=== PATIENT | male | born 1965 | race Caucasian/White ===

== ENCOUNTER 2018-12-11 22:35 | Inpatient (IN) ==
--- NOTE | 2018-12-11 22:50 | CT ---
CT head without contrast Indication: Left-sided weakness, hypertension Comparison: None Technique: CT images of the head were obtained without contrast. Automatic exposure control was utilized. Findings: Chronic bilateral basal ganglia infarcts. There is no acute bleed, mass effect, or abnormal extra-axial collection. No acute osseous abnormality. The paranasal sinuses and mastoid air cells are clear. Impression: No acute intracranial abnormality. Chronic basal ganglia infarcts. Reported By:
[2018-12-11 22:56] VITALS: BMI 29.8
[2018-12-11] MEDS ORDERED: NORMODYNE INJ 100 MG VIAL IVP ONE ×2 (22:56→23:11)
[2018-12-11 22:58] LABS: BASOPHILS # (AUTO) 0.1 X10^3/uL (0.0-0.1); BASOPHILS % (AUTO) 0.7 % (0.2-1.0); EOSINOPHILS # (AUTO) 0.1 x10^3/uL (0.0-0.2); HEMATOCRIT 46.8 % (42.0-54.0); HEMOGLOBIN 16.4 g/dL (13.5-18.0); MEAN CORPUSCULAR HEMOGLOBIN 33.5 pg (27.0-34.0); MEAN CORPUSCULAR VOLUME 95.7 fL (80.0-100.0); MEAN PLATELET VOLUME 7.4 fL (7.4-11.0); MONOCYTES # (AUTO) 0.6 x10^3/uL (0.3-0.8); MONOCYTES % (AUTO) 8.3 % (0.0-13.0); NEUTROPHILS # (AUTO) 3.8 x10^3/uL (2.2-4.8); PLATELET COUNT 253 X10^3/uL (150.0-450.0); RED BLOOD COUNT 4.89 X10^6/uL (4.7-6.0); RED CELL DISTRIBUTION WIDTH 13.8 % (11.6-16.5); WHITE BLOOD COUNT 7.5 X10^3/uL (3.6-10.0)
[2018-12-11 23:18] LABS: BLOOD UREA NITROGEN 8 mg/dL (7-18); CALCIUM 8.9 mg/dL (8.5-10.1); CARBON DIOXIDE 23.7 mmol/L (21-32); CHLORIDE 101 mmol/L (98-107); COR NA(FOR HYPERGLY) 139 mmol/L (136-145); CREATININE 1.08 mg/dL (0.70-1.30); SODIUM 138 mmol/L (136-145); TROPONIN I 0.03 ng/mL (0-1.5); eGFR NON BLACK RACES > 60 (>60)
[2018-12-11 23:21] LABS: ALANINE AMINOTRANSFERASE 36 Units/L (12-78); ALBUMIN 3.8 g/dL (3.4-5.0); ALKALINE PHOSPHATASE 116 Units/L (46-116); ASPARTATE AMINO TRANSFERASE 21 Units/L (15-37); CHOL/HDL RATIO 5.4 (0.0-5.0); CHOLESTEROL 179 mg/dL (0-200); CKMB % 1.5 % (<4); CREATINE KINASE 246 Units/L (39-308); CREATINE KINASE MB 3.6 ng/mL (0-4.0); HDL CHOLESTEROL 33 mg/dL (40-60); TOTAL PROTEIN 7.5 g/dL (6.4-8.2); TRIGLYCERIDES 444 mg/dL (0-150)
--- NOTE | 2018-12-11 23:35 | DR.WEAKNES ---
HPI Time Seen Time Seen by Provider: 12/11/18 23:30 Primary Care Physician Primary Care Physician: NFD Complaints Chief Complaint Doctors Comments: A 53 y/o male cherri was brought in by EMS with possible stroke. At the time the EMS unit arrived to evaluate him he was asymptomatic and he was asymptomatic upon arrival into the ED here. He states that his LUE was not acting right. He denies headaches, diplopia, dysphagia, visual impairment, urine or bladder impairment. Chief Complaint:: [facility] RESPONDED TO A CALL IN [place] REFERENCE TO POSSIBLE STROKE. [facility]IV[facility] PATIENT WITH NO DEFICITS. 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 PATIENT DOES SMELL OF ALCOHOL. EMS STATES, "/FRIEND STATED," S/S STARTED 1 HR AGO." PATIENT STATES, "HE FELT SOMETHING DIFFERENT AFTER LIFTING SOMETHING AT 1600. FEELS LIKE EVERYTHING IS GOING TO THE LEFT. Reviewed Nurses Notes Reviewed: Yes Source History Provided: Patient and EMS Mode of Arrival Mode of Arrival: EMS Timing Onset of Chief Complaint: 12/11/18 Since onset, symptoms are:: Resolved Symptom Onset: Known Onset of Symptoms Start Date: 12/11/18 Onset of Symptoms Start Time: 21:38 Context Onset: Spontaneous History of: None Stroke Symptoms: None Associated Signs and Symptoms Associated Signs and Symptoms: None PMH PMH Past Medical History: Yes Past Medical History: Hypertension Past Surgical History: No Family History History of Family Medical Conditions: No Social History Does patient currently use any type of tobacco product: No Have you used tobacco products in the last 12 months: No Type of Tobacco Use: None Does any household member use tobacco: No Alcohol Use: Heavy Do you use any recreational Drugs:: No Lives With: Spouse Lives Where: Home infectious screening Have you traveled outside the country in the last 6 months?: No Isolation: Standard ROS Review of Systems Constitutional: No Symptoms Reported Eyes: No Symptoms Reported ENTM: No Symptoms Reported Respiratoy: No Symptoms Reported Cardiovascular: No Symptoms Reported Gastrointestinal/Abdominal: No Symptoms Reported Genitourinary: No Symptoms Reported Musculoskeletal: Other (Lt. hand not acting right) Integumentary: No Symptoms Reported Hematologic/Lymphatic: No Symptoms Reported Endocrine: No Symptoms Reported Psychiatric: No Symptoms Reported PE Vital Signs Vitals: Temperature 98.9 F Pulse Rate [Apical] 73 Pulse Rate 102 Respiratory Rate 16 Blood Pressure [Left Arm] 147/82 Blood Pressure 240/125 O2 Sat by Pulse Oximetry 95 General Limitations: No Limitations General Appearance: Alert, In No Apparent Distress and Appears Intoxicated Head Head Exam: Normal Inspection, Atraumatic and Normocephalic Eyes Eye exam: Normal Appearance and EOMI ENT ENT Exam: Normal Oropharynx and Mucous Membranes Moist Mouth Exam: Normal Inspection Neck Neck Exam: Normal Inspection, Full ROM and Trachea Midline Chest Chest Inspection: Normal Inspection and Symmetric Chest Wall Rise Respiratory Respiratory Exam: Normal Lung Sounds Bilat Cardiovascular Cardiovascular Exam: Regular Rate, Normal Rhythm, +S1 and +S2 Abdominal Exam Abdominal Exam: Normal Inspection, Normal Bowel Sounds and Soft Extremities Extremities Exam: Normal Inspection and Full ROM Back Back Exam: Normal Inspection Neurologic Neurological Exam: Alert and Oriented X3 Psychiatric Psychiatric Exam: Normal Affect and Normal Mood Skin Skin Exam: Warm, Dry and Normal Color COURSE Reevaluation 1st: Resolved Education/Counseling Education/Counseling: Patient, Family, Education and Counseling Educated On: Treatment, Diagnosis, Prognosis and Needs for Follow Up ROR Labs Reviewed Laboratory Results Reviewed?: Yes Result Diagrams: 12/11/18 22:50 12/11/18 22:50 Laboratory: WBC 7.5 X10^3/uL (3.6-10.0) 12/11/18 22:50 RBC 4.89 X10^6/uL (4.7-6.0) 12/11/18 22:50 Hgb 16.4 g/dL (13.5-18.0) 12/11/18 22:50 Hct 46.8 % (42.0-54.0) 12/11/18 22:50 MCV 95.7 fL (80.0-100.0) 12/11/18 22:50 MCH 33.5 pg (27.0-34.0) 12/11/18 22:50 MCHC 35.0 g/dL (33.0-35.0) 12/11/18 22:50 RDW 13.8 % (11.6-16.5) 12/11/18 22:50 Plt Count 253 X10^3/uL (150.0-450.0) 12/11/18 22:50 MPV 7.4 fL (7.4-11.0) 12/11/18 22:50 Neut % (Auto) 50.0 % (42.0-75.0) 12/11/18 22:50 Lymph % (Auto) 40.0 % (21.0-51.0) 12/11/18 22:50 [place] % (Auto) 8.3 % (0.0-13.0) 12/11/18 22:50 Eos % (Auto) 1.0 % (0.9-2.9) 12/11/18 22:50 Baso % (Auto) 0.7 % (0.2-1.0) 12/11/18 22:50 Neut # (Auto) 3.8 x10^3/uL (2.2-4.8) 12/11/18 22:50 Lymph # (Auto) 3.0 X10^3/uL (1.3-2.9) H 12/11/18 22:50 [place] # (Auto) 0.6 x10^3/uL (0.3-0.8) 12/11/18 22:50 Eos # (Auto) 0.1 x10^3/uL (0.0-0.2) 12/11/18 22:50 Baso # (Auto) 0.1 X10^3/uL (0.0-0.1) 12/11/18 22:50 Absolute Nucleated RBC 0.1 /100WBC 12/11/18 22:50 INR Target Range - 12/11/18 22:50 INR 0.98 (0.8-1.3) 12/11/18 22:50 APTT 28.9 SECONDS (22.9-36.5) 12/11/18 22:50 PTT Comment - 12/11/18 22:50 Fibrinogen 342 mg/dL (239-489) 12/11/18 22:50 Sodium 138 mmol/L (136-145) 12/11/18 22:50 Corrected Sodium 139 mmol/L (136-145) 12/11/18 22:50 Potassium 3.4 mmol/L (3.5-5.1) L 12/11/18 22:50 Chloride 101 mmol/L (98-107) 12/11/18 22:50 Carbon Dioxide 23.7 mmol/L (21-32) 12/11/18 22:50 BUN 8 mg/dL (7-18) 12/11/18 22:50 Creatinine 1.08 mg/dL (0.70-1.30) 12/11/18 22:50 Est GFR (MDRD) Af Amer > 60 (>60) 12/11/18 22:50 Est GFR (MDRD) Non-Af > 60 (>60) 12/11/18 22:50 Glucose 144 mg/dL (65-99) H 12/11/18 22:50 Calcium 8.9 mg/dL (8.5-10.1) 12/11/18 22:50 Corrected Calcium TNP 12/11/18 22:50 Total Bilirubin 0.50 mg/dL (0.2-1.0) 12/11/18 22:50 AST 21 Units/L (15-37) 12/11/18 22:50 ALT 36 Units/L (12-78) 12/11/18 22:50 Alkaline Phosphatase 116 Units/L (46-116) 12/11/18 22:50 Creatine Kinase 246 Units/L (39-308) 12/11/18 22:50 CK-MB (CK-2) 3.6 ng/mL (0-4.0) 12/11/18 22:50 CK/CKMB % Calc 1.5 % (<4) 12/11/18 22:50 Troponin I 0.03 ng/mL (0-1.5) 12/11/18 22:50 Total Protein 7.5 g/dL (6.4-8.2) 12/11/18 22:50 Albumin 3.8 g/dL (3.4-5.0) 12/11/18 22:50 Globulin 3.7 g/dL (2.5-4.5) 12/11/18 22:50 Albumin/Globulin Ratio 1.0 Ratio (1.1-2.1) L 12/11/18 22:50 Triglycerides 444 mg/dL (0-150) H 12/11/18 22:50 Cholesterol 179 mg/dL (0-200) 12/11/18 22:50 LDL Cholesterol, Calc 57 mg/dL (0-100) 12/11/18 22:50 HDL Cholesterol 33 mg/dL (40-60) L 12/11/18 22:50 Cholesterol/HDL Ratio 5.4 (0.0-5.0) H 12/11/18 22:50 Other Results Comments: Radiology report: CT Scan Brain: No acute intracranial abnormality. Chronic basal ganglia infarcts. EKG Rate: 102 Rhythm: NSR Block: None Hypertrophy: LAE and LVH ST: Normal
[2018-12-11] MEDS ORDERED: K-DUR TAB 20 MEQ ONE (23:58)
[2018-12-12] MEDS ORDERED: NORMODYNE INJ 100 MG VIAL IVP PRN (00:16)
[2018-12-12 06:01] LABS: BLOOD UREA NITROGEN 9 mg/dL (7-18); CALCIUM 8.8 mg/dL (8.5-10.1); CARBON DIOXIDE 25.9 mmol/L (21-32); CHLORIDE 104 mmol/L (98-107); COR NA(FOR HYPERGLY) 141 mmol/L (136-145); CREATININE 1.09 mg/dL (0.70-1.30); SODIUM 140 mmol/L (136-145); eGFR NON BLACK RACES > 60 (>60)
[2018-12-12 07:42] LABS: CKMB % 1.3 % (<4); CREATINE KINASE MB 2.4 ng/mL (0-4.0); MAGNESIUM 2.1 mg/dL (1.7-2.9); TROPONIN I 0.03 ng/mL (0-1.5)
[2018-12-12] MEDS: HYDROCHLOROTHIAZIDE 25 MG TAB PO SCH (08:07)
[2018-12-12] MEDS: NORMODYNE TAB 100 MG PO SCH ×2 (08:08→20:26)
[2018-12-12] MEDS ORDERED: KLOR-CON PO PRN (08:08)
[2018-12-12] MEDS ORDERED: POTASSIUM CHL 40 MEQ/NS 0.45% 500 ML IV PRN (08:08)
[2018-12-12] MEDS ORDERED: K-RIDER 10 MEQ/NS 100 ML 10 MEQ/100 ML BAG IV PRN (08:08)
[2018-12-12] MEDS ORDERED: MICRO K EXTEN CAP 10 MEQ PO PRN (08:08)
[2018-12-12] MEDS ORDERED: K-DUR TAB 20 MEQ PO PRN (08:08)
[2018-12-12] MEDS ORDERED: POTASSIUM CHL 60 MEQ/NS 0.45% 500 ML IV PRN (08:08)
[2018-12-12] MEDS ORDERED: POTASSIUM CHLORIDE LIQ 20 MEQ UDC PO PRN (08:08)
--- NOTE | 2018-12-12 08:45 | RAD ---
HISTORY: Left-sided weakness, hypertension Study: Chest AP portable Comparison: None Findings: The heart is enlarged. No congestive heart failure is noted. The jayashree are normal. The lung brito are clear. The bony thorax is unremarkable. IMPRESSION: Moderate cardiomegaly without congestive heart failure Lungs clear Reported By:
[2018-12-12] MEDS: COZAAR PO SCH (08:47)
[2018-12-12] MEDS: ASPIRIN 81 MG CHEWTAB PO SCH (08:47)
[2018-12-12] MEDS ORDERED: APRESOLINE INJ 20 MG VIAL IVP PRN (09:40)
[2018-12-12] MEDS: LOVENOX INJ 40 MG SYR SC SCH (10:03)
[2018-12-12] MEDS: PLAVIX PO SCH (10:03)
[2018-12-12 13:11] LABS: CKMB % 1.3 % (<4); CREATINE KINASE MB 2.1 ng/mL (0-4.0); TROPONIN I 0.03 ng/mL (0-1.5)
--- NOTE | 2018-12-12 15:04 | VAS ---
HISTORY: Hypertension, left-sided weakness Study: Bilateral carotid Doppler ultrasound Comparison: Priors Technique: Grayscale, color and duplex Doppler evaluation of the cervical carotid arteries is provided. Vertebral arteries could not be identified. Findings: The cervical arteries flow cephalad bilaterally. Peak systolic arterial velocity in the right ICA is 49.3 centimeters/second. Peak systolic arterial velocity in left ICA is 91.3 cm per second. ICA/CCA ratios are as follows: On the right 0.68 and on the left left 1.10. IMPRESSION: No hemodynamically significant stenosis is seen. Vertebral arteries were not identified. Reported By:
--- NOTE | 2018-12-12 15:23 | US ---
HISTORY: Malignant Hypertension Study: Bilateral renal and bladder ultrasound Comparison: No priors Technique: Grayscale, color and duplex Doppler evaluation of kidneys is provided. Bladder survey images are also performed. Findings: Abdominal aorta is incidentally seen and no evidence of aneurysm is identified. Both kidneys display normal corticomedullary echo differentiation. No evidence of renal mass, stone or hydronephrosis is seen. Right kidney measures 4.74 x 3.90 x 9.80 cm. Cortical thickness is 1.62 cm. Resistive index is 0.45. Color and duplex Doppler evaluation of the right kidney is normal. Left kidney measures 4.35 x 4.52 x 9.88 cm. Cortical thickness is 1.83. Resistive index is 0.64. Color and duplex Doppler evaluation of the left kidney is normal. Bladder survey images reveal no evidence of mass or stone. At the time of the examination today the bladder capacity is about 71.7 cc. IMPRESSION: Normal bilateral renal and bladder ultrasound. Reported By:
--- NOTE | 2018-12-12 16:04 | MRI ---
HISTORY: CVA symptoms and white matter disease. Study: Noncontrast MRI examination of the brain. Comparison: Head CT examination dated 12/11/2018. Technique: Multiplanar multi-sequence MRI of the brain was obtained utilizing standard departmental protocol. Sagittal and axial T1 weighted images were obtained. Axial T2 and flair weighted images were performed as well. Axial diffusion weighted and ADC trace mapping was performed. Findings: There is advanced/severe periventricular white matter microvascular disease which extends into the basal ganglia bilaterally throughout the high and mid convexity, consistent with chronic white matter microvascular disease, likely in the setting of longstanding hypertension or diabetes in this setting. Additionally, there is a 1.5 cm curvilinear white matter/centrum semiovale ischemic event/CVA seen in the periventricular region of the right mid convexity on images 17-22 of series 502, extending to the right posterior basal ganglia. No other acute abnormalities are observed. The midline structures appear unremarkable. The evaluation of the brain parenchyma demonstrates no abnormal signal characteristics to suggest intraparenchymal mass or hemorrhage. No extra-axial fluid collections are observed. The ventricular system appears symmetric and nondilated. The CP angle is normal in its appearance without brainstem mass or evidence for acoustic neuroma. The flow voids on both T1 and T2 weighted imaging appear unremarkable. Evaluation of the diffusion weighted imaging does not show additional signal characteristics to suggest acute ischemic change. The extracranial structures are unremarkable. IMPRESSION: Acute to subacute, curvilinear and focal, right mid convexity (periventricular white matter) centrum semiovale lacunar ischemic event/CVA, as discussed above. Advanced but chronic appearing periventricular and basal ganglial microvascular disease and white matter disease, likely secondary to longstanding hypertension or diabetes. Please correlate to exclude a primary demyelinating disease, however. Left basal ganglial T2 intense lesion which measures 12 x 6 mm with a surrounding rim of hemosiderin which could reflect an old cavernoma or old lacunar CVAs. No other acute intracranial process or acute intracranial hemorrhage is observed. Reported By:
--- NOTE | 2018-12-12 17:12 | DR.H&P ---
H&P - History & Physical for Day of: H&P Date: 12/12/18 - Chief Complaint Chief Complaint: elevated blood pressure, left side weakness - History of Present Illness History of Present Illness: [facility] RESPONDED TO A CALL [place] TO POSSIBLE STROKE. [facility] ARRIV[facility] PATIENT WITH NO DEFICITS. 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 PATIENT DOES SMELL OF ALCOHOL. EMS STATES, "/FRIEND STATED," S/S STARTED 1 HR AGO." PATIENT STATES, "HE FELT SOMETHING DIFFERENT AFTER LIFTING SOMETHING AT 1600. FEELS LIKE EVERYTHING IS GOING TO THE LEFT. PT HAD KNOWN HX OF HTN, NOT CURRENTLY ON ANY MEDICATION, NO KNOWN CAD OR DM. PT DENIES CHEST PAIN OR SOB. - Past Medical History Past Medical History: Hypertension - Social History Does patient currently use any type of tobacco product: No Have you used tobacco products in the last 12 months: No Type of Tobacco Use: None Does any household member use tobacco: Yes Alcohol Use: DAILY Drug Use: Marijuana - Medications Home Medications: No Known Drug Allergies Allergy (Verified 12/11/18 22:56) CONTINUE taking the following medications NK 12/12/18 [History] - Review of Systems Constitutional: Weakness Eyes: No Symptoms Reported ENT: No Symptoms Reported Respiratory: No Symptoms Reported Cardiovascular: No Symptoms Reported Gastrointestinal: No Symptoms Reported Genitourinary: No Symptoms Reported Musculoskeletal: Other (LEFT ARM AND LEFT LEG WEAKNESS) Skin: No Symptoms Reported Neurological: Weakness, Numbness, Incoordination (LEFT UPPER AND LOWER E XTREMITIES) - Physical Exam Vital Signs: Temperature 98.7 F Pulse Rate [Apical] 70 Pulse Rate 102 Respiratory Rate 22 Blood Pressure [Left Arm] 168/83 Blood Pressure 240/125 O2 Sat by Pulse Oximetry 96 Oriented: Normal Eyes: Normal Ear: Normal Nose: Normal Throat: Normal, Other (LEFT SIDE MOUTH DROOP) Respiratory: RLL Diminished, LLL Diminished Cardiovascular: Normal Auscultation: Bowel Sounds: Normal Palpation: Liver Enlarged, Other (MILD DIFFUSE DISTENTION) Tenderness: Normal Skin: Normal Musculoskeletal: Left, Arm, Leg, Back:Lumbar, Motor Deficit, Sensory Deficit Psychiatric: Anxiety Affect: Anxious Speech Pattern: Slurred (MILDLY) - Assessment/Plan (1) Acute left-sided weakness Status: Acute Plan: ADMIT, ICU CT HEAD ON ADMISSION. BP CONTROL, MRI THIS AM. CAROTID US, RENAL ARTERY US. ECHO, SERIAL CE, STATIN, ASPIRIN, PLAVIX. NEURO CHECKS, AMMONIA LEVEL (2) Slurred speech Status: Acute (3) Hyperlipidemia Status: Acute (4) Hypertensive urgency Status: Acute (5) Hypokalemia Status: Acute - Allergies Allergies/Adverse Reactions: Allergies Allergy/AdvReac Type Severity Reaction Status Date / Time No Known Drug Allergies Allergy Verified 12/11/18 22:56
[2018-12-12 19:32] LABS: CKMB % 1.4 % (<4); CREATINE KINASE 136 Units/L (39-308); CREATINE KINASE MB 1.9 ng/mL (0-4.0); TROPONIN I < 0.02 ng/mL (0-1.5)
[2018-12-12] MEDS: CRESTOR TAB 10 MG PO SCH (20:25)
[2018-12-12] MEDS ORDERED: LIBRIUM PO PRN (21:00)
[2018-12-12] MEDS ORDERED: K-DUR TAB 20 MEQ PO ONE (23:48)
[2018-12-13] MEDS ORDERED: NS 250 ML IV 250 ML ONE (01:38)
[2018-12-13 05:22] LABS: BASOPHILS % (AUTO) 0.5 % (0.2-1.0); EOSINOPHILS # (AUTO) 0.1 x10^3/uL (0.0-0.2); EOSINOPHILS % (AUTO) 1.5 % (0.9-2.9); HEMOGLOBIN 15.8 g/dL (13.5-18.0); LYMPHOCYTES % (AUTO) 31.6 % (21.0-51.0); MEAN CORPUSCULAR HEMOGLOBIN 33.9 pg (27.0-34.0); MEAN CORPUSCULAR HGB CONC 35.2 g/dL (33.0-35.0); MEAN CORPUSCULAR VOLUME 96.3 fL (80.0-100.0); MEAN PLATELET VOLUME 8.3 fL (7.4-11.0); MONOCYTES # (AUTO) 0.7 x10^3/uL (0.3-0.8); NEUTROPHILS # (AUTO) 3.4 x10^3/uL (2.2-4.8); NEUTROPHILS % (AUTO) 54.4 % (42.0-75.0); PLATELET COUNT 231 X10^3/uL (150.0-450.0); RED BLOOD COUNT 4.67 X10^6/uL (4.7-6.0); RED CELL DISTRIBUTION WIDTH 13.9 % (11.6-16.5); WHITE BLOOD COUNT 6.2 X10^3/uL (3.6-10.0)
[2018-12-13 05:29] LABS: ALANINE AMINOTRANSFERASE 32 Units/L (12-78); ALBUMIN 3.3 g/dL (3.4-5.0); ALKALINE PHOSPHATASE 103 Units/L (46-116); ASPARTATE AMINO TRANSFERASE 16 Units/L (15-37); BLOOD UREA NITROGEN 11 mg/dL (7-18); CARBON DIOXIDE 24.7 mmol/L (21-32); CHLORIDE 103 mmol/L (98-107); COR CA(FOR HYPOALB) 9.6 mg/dL (8.5-10.1); COR NA(FOR HYPERGLY) 141 mmol/L (136-145); CREATININE 1.08 mg/dL (0.70-1.30); SODIUM 140 mmol/L (136-145); TOTAL PROTEIN 6.6 g/dL (6.4-8.2); eGFR NON BLACK RACES > 60 (>60)
[2018-12-13] MEDS: LIBRIUM PO SCH ×2 (08:09→20:10)
[2018-12-13] MEDS: NORMODYNE TAB 100 MG PO SCH (08:09)
[2018-12-13] MEDS: HYDROCHLOROTHIAZIDE 25 MG TAB PO SCH (08:09)
[2018-12-13] MEDS: ASPIRIN 81 MG CHEWTAB PO SCH (08:09)
[2018-12-13] MEDS: COZAAR PO SCH (08:09)
[2018-12-13] MEDS: PLAVIX PO SCH (08:10)
[2018-12-13] MEDS: LOVENOX INJ 40 MG SYR SC SCH (08:10)
--- NOTE | 2018-12-13 11:14 | CT ---
CT abdomen and pelvis with contrast Indication: Abdominal distension Comparison: None available Technique: Multiple axial images of the abdomen and pelvis were obtained from the lung bases to the pubic symphysis after the administration of IV contrast. Coronal and sagittal reformatted images were also provided. Findings: The lung bases are clear. There is a small hemangioma measuring approximately 15 mm within the medial hepatic segment on axial image 33. No other hepatic lesion identified. The liver has a normal morphology. Portal vein is patent. Hepatic veins are normal. Gallbladder, bile ducts, spleen, pancreas and adrenal glands are normal. Neither kidney demonstrates evidence of nephrolithiasis, hydronephrosis or mass. There is a small cyst present within the upper pole of the right kidney. Upper GI tract is without evidence of mass or obstruction. Urinary bladder is mildly thick walled. Prostate gland is within normal limits. The rectum and colon are unremarkable aside for a few distal colonic diverticula. The appendix is normal. No pelvic free fluid or adenopathy. Abdominal aorta is normal in caliber with scattered calcified atherosclerotic disease. Review of bone windows demonstrates degenerative changes within the pubic symphysis. There is also mild degenerative change of both SI joints with mild multilevel spondylosis of the lumbar spine. Impression: 1.Small hemangioma measuring 15 mm within the medial hepatic segment. The liver morphology is without evidence of cirrhosis. No ascites. 2. Urinary bladder demonstrates mild diffuse wall thickening which can be seen in setting of underdistention however correlation with patient's symptoms and urinalysis is needed to exclude an acute interstitial cystitis. 3. Mild colonic diverticulosis without evidence of acute diverticulitis. 4. Refer to above for incidental, chronic findings. Reported By:
[2018-12-13 11:18] LABS: TROPONIN I 0.02 ng/mL (0-1.5)
[2018-12-13] MEDS: LOPRESSOR TAB 25 MG PO SCH ×2 (13:17→20:10)
[2018-12-13 16:32] LABS: CKMB % 0.7 % (<4); CREATINE KINASE 293 Units/L (39-308); TROPONIN I < 0.02 ng/mL (0-1.5)
[2018-12-13] MEDS: CRESTOR TAB 10 MG PO SCH (20:10)
[2018-12-13 22:10] LABS: CKMB % 0.5 % (<4); CREATINE KINASE MB 1.6 ng/mL (0-4.0); TROPONIN I 0.02 ng/mL (0-1.5)
[2018-12-14 06:28] LABS: ALANINE AMINOTRANSFERASE 33 Units/L (12-78); ALBUMIN 3.3 g/dL (3.4-5.0); ALKALINE PHOSPHATASE 99 Units/L (46-116); ASPARTATE AMINO TRANSFERASE 16 Units/L (15-37); BLOOD UREA NITROGEN 14 mg/dL (7-18); CALCIUM 8.5 mg/dL (8.5-10.1); CARBON DIOXIDE 26.3 mmol/L (21-32); CHLORIDE 103 mmol/L (98-107); COR CA(FOR HYPOALB) 9.1 mg/dL (8.5-10.1); COR NA(FOR HYPERGLY) 140 mmol/L (136-145); CREATININE 1.15 mg/dL (0.70-1.30); SODIUM 138 mmol/L (136-145); TOTAL PROTEIN 6.5 g/dL (6.4-8.2); eGFR NON BLACK RACES > 60 (>60)
[2018-12-14 06:29] LABS: BASOPHILS % (AUTO) 0.6 % (0.2-1.0); EOSINOPHILS # (AUTO) 0.1 x10^3/uL (0.0-0.2); EOSINOPHILS % (AUTO) 1.7 % (0.9-2.9); HEMATOCRIT 45.3 % (42.0-54.0); HEMOGLOBIN 15.7 g/dL (13.5-18.0); LYMPHOCYTES # (AUTO) 1.9 X10^3/uL (1.3-2.9); LYMPHOCYTES % (AUTO) 29.5 % (21.0-51.0); MEAN CORPUSCULAR HEMOGLOBIN 33.5 pg (27.0-34.0); MEAN CORPUSCULAR HGB CONC 34.6 g/dL (33.0-35.0); MEAN CORPUSCULAR VOLUME 96.7 fL (80.0-100.0); MEAN PLATELET VOLUME 7.8 fL (7.4-11.0); MONOCYTES # (AUTO) 0.7 x10^3/uL (0.3-0.8); MONOCYTES % (AUTO) 11.5 % (0.0-13.0); NEUTROPHILS # (AUTO) 3.7 x10^3/uL (2.2-4.8); NEUTROPHILS % (AUTO) 56.7 % (42.0-75.0); PLATELET COUNT 243 X10^3/uL (150.0-450.0); RED BLOOD COUNT 4.69 X10^6/uL (4.7-6.0); RED CELL DISTRIBUTION WIDTH 13.5 % (11.6-16.5); WHITE BLOOD COUNT 6.4 X10^3/uL (3.6-10.0)
[2018-12-14] MEDS: LIBRIUM PO SCH ×2 (08:39→20:35)
[2018-12-14] MEDS: PLAVIX PO SCH (08:40)
[2018-12-14] MEDS: LOVENOX INJ 40 MG SYR SC SCH (08:40)
[2018-12-14] MEDS: COZAAR PO SCH (08:40)
[2018-12-14] MEDS: HYDROCHLOROTHIAZIDE 25 MG TAB PO SCH (08:40)
[2018-12-14] MEDS: ASPIRIN 81 MG CHEWTAB PO SCH (08:40)
[2018-12-14] MEDS: LOPRESSOR TAB 25 MG PO SCH ×2 (08:40→20:34)
[2018-12-14] MEDS: NORVASC TAB 5 MG PO SCH (20:35)
[2018-12-14] MEDS: CRESTOR TAB 10 MG PO SCH (20:35)
[2018-12-15 06:11] LABS: BASOPHILS % (AUTO) 0.4 % (0.2-1.0); EOSINOPHILS % (AUTO) 0.6 % (0.9-2.9); HEMATOCRIT 46.3 % (42.0-54.0); HEMOGLOBIN 16.3 g/dL (13.5-18.0); LYMPHOCYTES # (AUTO) 0.8 X10^3/uL (1.3-2.9); LYMPHOCYTES % (AUTO) 11.9 % (21.0-51.0); MEAN CORPUSCULAR HEMOGLOBIN 33.8 pg (27.0-34.0); MEAN CORPUSCULAR HGB CONC 35.1 g/dL (33.0-35.0); MEAN CORPUSCULAR VOLUME 96.3 fL (80.0-100.0); MONOCYTES # (AUTO) 0.6 x10^3/uL (0.3-0.8); MONOCYTES % (AUTO) 8.9 % (0.0-13.0); NEUTROPHILS # (AUTO) 5.6 x10^3/uL (2.2-4.8); NEUTROPHILS % (AUTO) 78.2 % (42.0-75.0); PLATELET COUNT 201 X10^3/uL (150.0-450.0); RED BLOOD COUNT 4.81 X10^6/uL (4.7-6.0); RED CELL DISTRIBUTION WIDTH 13.5 % (11.6-16.5); WHITE BLOOD COUNT 7.1 X10^3/uL (3.6-10.0)
[2018-12-15 06:32] LABS: ALANINE AMINOTRANSFERASE 35 Units/L (12-78); ALBUMIN 3.6 g/dL (3.4-5.0); ALKALINE PHOSPHATASE 104 Units/L (46-116); ASPARTATE AMINO TRANSFERASE 24 Units/L (15-37); BLOOD UREA NITROGEN 12 mg/dL (7-18); CARBON DIOXIDE 24.7 mmol/L (21-32); CHLORIDE 101 mmol/L (98-107); COR NA(FOR HYPERGLY) 137 mmol/L (136-145); CREATININE 1.01 mg/dL (0.70-1.30); SODIUM 136 mmol/L (136-145); TOTAL PROTEIN 7.1 g/dL (6.4-8.2); eGFR NON BLACK RACES > 60 (>60)
[2018-12-15] MEDS: COZAAR PO SCH (09:01)
[2018-12-15] MEDS: ECOTRIN TAB 325 MG PO SCH (09:01)
[2018-12-15] MEDS: LOVENOX INJ 40 MG SYR SC SCH (09:01)
[2018-12-15] MEDS: NORVASC TAB 5 MG PO SCH (09:01)
[2018-12-15] MEDS: LOPRESSOR TAB 25 MG PO SCH ×2 (09:01→20:50)
[2018-12-15] MEDS: LIBRIUM PO SCH ×2 (09:01→20:50)
[2018-12-15] MEDS: PLAVIX PO SCH (09:02)
[2018-12-15] MEDS: CRESTOR TAB 10 MG PO SCH (20:50)
[2018-12-16 06:05] LABS: BASOPHILS % (AUTO) 0.7 % (0.2-1.0); EOSINOPHILS % (AUTO) 0.4 % (0.9-2.9); HEMATOCRIT 48.2 % (42.0-54.0); HEMOGLOBIN 16.7 g/dL (13.5-18.0); LYMPHOCYTES # (AUTO) 1.3 X10^3/uL (1.3-2.9); LYMPHOCYTES % (AUTO) 25.5 % (21.0-51.0); MEAN CORPUSCULAR HEMOGLOBIN 33.6 pg (27.0-34.0); MEAN CORPUSCULAR HGB CONC 34.7 g/dL (33.0-35.0); MEAN CORPUSCULAR VOLUME 96.7 fL (80.0-100.0); MEAN PLATELET VOLUME 7.3 fL (7.4-11.0); MONOCYTES % (AUTO) 19.8 % (0.0-13.0); NEUTROPHILS # (AUTO) 2.7 x10^3/uL (2.2-4.8); NEUTROPHILS % (AUTO) 53.6 % (42.0-75.0); PLATELET COUNT 189 X10^3/uL (150.0-450.0); RED BLOOD COUNT 4.98 X10^6/uL (4.7-6.0); RED CELL DISTRIBUTION WIDTH 13.6 % (11.6-16.5); WHITE BLOOD COUNT 4.9 X10^3/uL (3.6-10.0)
[2018-12-16 06:25] LABS: ALANINE AMINOTRANSFERASE 40 Units/L (12-78); ALBUMIN 3.5 g/dL (3.4-5.0); ALKALINE PHOSPHATASE 101 Units/L (46-116); ASPARTATE AMINO TRANSFERASE 28 Units/L (15-37); BLOOD UREA NITROGEN 13 mg/dL (7-18); CALCIUM 9.1 mg/dL (8.5-10.1); CARBON DIOXIDE 30.2 mmol/L (21-32); CHLORIDE 101 mmol/L (98-107); CREATININE 1.23 mg/dL (0.70-1.30); SODIUM 138 mmol/L (136-145); TOTAL PROTEIN 7.1 g/dL (6.4-8.2); eGFR NON BLACK RACES > 60 (>60)
[2018-12-16] MEDS: LOVENOX INJ 40 MG SYR SC SCH (10:10)
[2018-12-16] MEDS: ECOTRIN TAB 325 MG PO SCH (10:11)
[2018-12-16] MEDS: LIBRIUM PO SCH (10:11)
[2018-12-16] MEDS: LOPRESSOR TAB 25 MG PO SCH (10:11)
[2018-12-16] MEDS: PLAVIX PO SCH (10:11)
[2018-12-16] MEDS: COZAAR PO SCH (10:12)
[2018-12-16] MEDS: NORVASC TAB 5 MG PO SCH (10:12)
[2018-12-16 18:04] VITALS: BP 132/63
== END 2018-12-16 18:40 | disposition home or self-care (01) | DRG 66 ==
LOC: ER 22:36 → ICU 22:36
PROVIDERS: ADMIT Internal Medicine; ATTEND Internal Medicine
DX: R53.1 Weakness; R26.89 Other abnormalities of gait and mobility; E87.6 Hypokalemia; F10.10 Alcohol abuse, uncomplicated; E78.2 Mixed hyperlipidemia; R13.11 Dysphagia, oral phase; R94.31 Abnormal electrocardiogram [ECG] [EKG]; I63.9 Cerebral infarction, unspecified; R47.81 Slurred speech; K57.90 Diverticulosis of intestine, part unspecified, without perforation or abscess without bleeding; R29.810 Facial weakness; I16.0 Hypertensive urgency; I10 Essential (primary) hypertension; R90.82 White matter disease, unspecified
CPT/HCPCS: 36415; 70450; 70551; 71010; 71045; 74177; 76770; 80048; 80053; 80061; 82140; 82550; 82553; 83735; 84484; 85025; 85384; 85610; 85730; 92526; 92610; 93005; 93306; 93880; 96365; 96374; 96375; 97110; 97116; 97161; 97166; 99284; G0378; J0360; J1650; J3490; J7050